=== PATIENT | male | born 1955 | race Caucasian/White ===

== ENCOUNTER 2023-05-10 10:00 | Outpatient (CLI) | payer MEDICARE, OTHER ==
--- NOTE | 2023-05-10 16:32 | XRAY Report ---
PROCEDURE: Hip 2 View LT INDICATIONS: LEFT HIP PAIN TECHNIQUE: 2 view(s) of the hip were acquired. COMPARISON: None FINDINGS: Bones: No fractures or dislocations. Moderate right worse than left bilateral hip joint osteoarthrit ic changes are seen. No evidence of avascular necrosis of femoral head. No suspicious bony lesions. The visualized pelvic ring appears intact. Soft tissues: No suspicious soft tissue calcifications or masses. IMPRESSION: Moderate right worse than left bilateral hip joint osteoarthritis. No pelvic or hip fracture. No evid ence of avascular necrosis. Reviewed by: Jm Tse MD on 05/10/2023 4:31 PM PST Approved by: Jm Tse MD on 05/10/2023 4:31 PM PST Station ID: [id number]
== END 2023-05-10 23:59 | disposition home or self-care (01) ==
LOC: DI.WOS 10:00
PROVIDERS: ATTEND Physician Assistant Surgical
DX: M16.0 Bilateral primary osteoarthritis of hip (principal)